=== PATIENT | female | born 1975 | race American Indian/Alaskan Native ===

== ENCOUNTER 2017-09-08 12:56 | Day surgery (SDC) | payer BC ==
[~2017-09-08 12:56] MED LIST: ANCEF/STERILE WATER 2 GM/20 ML IV NR; NACL 0.9% 1000 ML 1,000 ML IV SCH; PEPCID IV NR; SUBLIMAZE IV PRN; ZOFRAN IV PRN
--- NOTE | 2017-09-08 13:29 | Anesthesia Consultation ---
<BENSON FAN - Last Filed: 09/08/17 13:29> Anesthesia Consult and Med Hx Date of service: 09/08/17 - Airway Anesthetic Teeth Evaluation: Good ROM Head & Neck: Adequate Mental/Hyoid Distance: Adequate Mallampati Class: Class II Intubation Access Assessment: Probably Good - Pulmonary Exam CTA: Yes - Cardiac Exam Cardiac Exam: RRR - Pre-Operative Health Status ASA Pre-Surgery Classification: ASA2 Proposed Anesthetic Plan: General - Central Nervous System Hx Back Pain: Yes (LOWER BACK PAIN ) - Hematic Hx Anemia: Yes Hx Sickle Cell Disease: No - Other Systems Hx Alcohol Use: Yes Hx Substance Use: No Hx Cancer: No <REBECCA GLYNN - Last Filed: 09/08/17 14:25> Anesthesia Consult and Med Hx - Pulmonary Hx Smoking: No
--- NOTE | 2017-09-08 13:29 | Anesthesia Day of Surgery ---
Anesthesia Day of Surgery - Day of Surgery Patient Examined: Yes Patient H&P Reviewed: Yes Patient is NPO: Yes
[2017-09-08] MEDS ORDERED: DECADRON IV ONE (14:27)
[2017-09-08] MEDS ORDERED: TRANSDERM-SCOP TD NR (15:00)
[2017-09-08] MEDS ORDERED: SUBLIMAZE ONE (15:45)
[2017-09-08] MEDS ORDERED: DIPRIVAN 10 MG/ML IV ONE (15:45)
[2017-09-08] MEDS ORDERED: ZOFRAN ONE (15:48)
[2017-09-08] MEDS ORDERED: XYLOCAINE MPF 2% ONE (15:48)
[2017-09-08] MEDS ORDERED: DECADRON ONE (15:48)
[2017-09-08] MEDS ORDERED: VERSED ONE (16:04)
[2017-09-08] MEDS ORDERED: WATER FOR IRRIG STERILE IR ONE (16:25)
--- NOTE | 2017-09-08 16:39 | Short Stay Summary ---
Short Stay Documentation Date of service: 09/08/17 - History H&P: obtained from office - Allergies and Medications Current Medications: Allergies aspirin Allergy (Verified 09/06/17 12:16) Rash codeine Allergy (Verified 09/06/17 12:16) Rash Home Medications Medication Instructions Recorded Confirmed Last Taken Type Ascorbic Acid [Vitamin C] 1,000 mg PO DAILY 09/06/17 09/08/17 09/05/17 09:00 History Biotin 5,000 mcg PO BID 09/06/17 09/08/17 09/05/17 09:00 History Collagen,Bovine [Triple [place] 3 tab PO BID 09/06/17 09/08/17 09/05/17 09:00 History Collagen] Folic Acid/Multivit-Min/Lutein 2 each PO BID 09/06/17 09/08/17 09/05/17 09:00 History [Adult Multivitamin Gummies] Garlic [Odor Free Garlic] 1 tab PO DAILY 09/06/17 09/08/17 09/05/17 09:00 History Lactobacillus Combination No.8 1 each PO DAILY 09/06/17 09/08/17 09/05/17 09:00 History [Adult Probiotic] Tumeric 2 tab PO DAILY 09/06/17 09/08/17 09/05/17 09:00 History Active Medications Famotidine (Pepcid) 20 mg IV PREOP NR Stop: 09/08/17 23:59 Last Admin: 09/08/17 14:00 Dose: 20 mg Fentanyl (Sublimaze) 50 mcg IV Q5MIN PRN PRN Reason: Pain , Severe (7-10) Stop: 09/08/17 18:00 Hydromorphone HCl (Dilaudid) 0.25 mg IV Q10MIN PRN PRN Reason: Pain, Moderate (4-6) Stop: 09/08/17 18:00 Sodium Chloride (Nacl 0.9% 1000 Ml) 1,000 mls @ 100 mls/hr IV DIRECT DAVINA Last Admin: 09/08/17 13:59 Dose: 100 mls/hr Ondansetron HCl (Zofran) 4 mg IV ONCE PRN PRN Reason: Nausea And Vomiting Stop: 09/08/17 18:00 Scopolamine (Transderm-Scop) 1 each TD PREOP NR Stop: 09/08/17 23:59 Last Admin: 09/08/17 14:36 Dose: 1 each - Brief post op/procedure progress note Date of procedure: 09/08/17 Pre-op diagnosis: left flank pain Post-op diagnosis: same Procedure: to, rpg, left ureteroscopy, stent with external string Anesthesia: MUNDO Surgeon: RICARDA LEVINE Estimated blood loss: none Pathology: none Condition: stable - Hospital course Hospital course: cipro, ultram, post op info on chart - Disposition Condition at discharge: Stable Disposition: DC-01 TO HOME OR SELFCARE Short Stay Discharge Plan Follow up with: VÍCTOR WILLIAMSON MD [Primary Care Provider] - 7 Days
[2017-09-08] MEDS: DILAUDID IV PRN ×3 (17:00→17:42)
[2017-09-08 17:46] VITALS: BP 112/59
--- NOTE | 2017-09-08 17:53 | Operative Report ---
PREOPERATIVE DIAGNOSIS: Left flank pain, kidney stone. POSTOPERATIVE DIAGNOSIS: Left flank pain, kidney stone, passed stone. PROCEDURE: Cystoscopy, bilateral retrograde pyelograms, left ureteroscopy, double-J stent placement (6 Japanese 24 cm with external string). SURGEON: Bin Garcia MD ANESTHESIA: General. ESTIMATED BLOOD LOSS: Minimal. FLUIDS: Crystalloid. COMPLICATIONS: No complications. INDICATIONS: This 42-year-old female seen in the office for left flank pain and lower urinary tract symptoms. She also has some back pain, which appears to be chronic in nature. CT of abdomen and pelvis, small left-sided kidney stone, no hydronephrosis, moderate fecal material in the colon, otherwise unremarkable. The patient's pain persists. She presents now for surgical intervention. She also has nocturia x 6 and requires urodynamic testing at a later date. DESCRIPTION OF PROCEDURE: The patient was taken to the operative suite, placed in a supine position. After adequate general anesthesia, placed in a dorsal lithotomy position, prepped and draped in a sterile fashion. Pancystourethroscopy was performed with 22 Japanese Storz cystoscope. No bladder pathology. No tumors or stones were noted. Both ureteral orifices in normal position. Bilateral retrograde pyelograms were obtained with an 8 Japanese [place] catheter and 8 mL of contrast. No filling defects or obstruction. However, due to her persistent pain, concern for small nonobstructing ureteral stone. Two 0.035 Glidewires were placed. Left rigid ureteroscopy up to the renal pelvis was performed. No stone could be appreciated. A 6 Japanese 24 cm double-J stent with an external string was left indwelling confirmed adequate position by fluoroscopy. Bladder was drained. She was extubated and taken to recovery room. She will go home on Ultram and Cipro. JOB# [id number] [facility]
--- NOTE | 2017-09-09 08:08 | Fluoroscopy Report ---
FLUOROSCOPY RETROGRADE UROGRAPHY: HISTORY: Left ureteral stone. FINDINGS: Fluoroscopy was provided by radiology during retrograde urography by the urologist. 11 fluoroscopic images were captured. There is adequate filling of the ureters and intrarenal collecting systems with no filling defects or anatomic abnormalities identified. Left ureteroscopy was performed by the operative report. A left ureteral stent was placed which adequately drains the left collecting system on the final image. Please correlate with the procedural report if needed. IMPRESSION: Retrograde pyelograms within normal limits. Left ureteral stent placement.
== END 2017-09-08 18:30 | disposition home or self-care (01) ==
LOC: OR 12:56
PROVIDERS: ATTEND Urology
DX: N20.0 Calculus of kidney (principal); I10 Essential (primary) hypertension; Z88.6 Allergy status to analgesic agent
CPT/HCPCS: 52332; 74420; 81025; A4217; C1758; J0690; J1100; J1170; J2250; J2405; J2704; J3010; J7030; Q9967